=== PATIENT | male | born 1975 | race Hispanic/Latino ===

== ENCOUNTER 2020-02-22 19:39 | Emergency (ER) | payer SELFPAY ==
[2020-02-22] MEDS ORDERED: NA CHLORIDE 0.9% 1,000 ML ONE (20:25)
[2020-02-22] MEDS ORDERED: ONDANSETRON 4 MG/2 ML VIAL ONE ×2 (20:25→23:04)
[2020-02-22 20:27] LABS: Absolute Lymphocytes (CBC) 0.7 K/uL (0.7-4.9); Basophils % 0.3 % (0-1.3); Hematocrit 36.2 % (39.6-49.0); Lymphocytes % 10.8 % (15.3-44.8); MPV 9.7 fL (7.6-11.3); RBC Red Blood Cell Count 3.66 M/uL (4.33-5.43)
[2020-02-22 20:40] LABS: ALT/SGPT 43 U/L (12-78); AST/SGOT 73 U/L (15-37); Albumin 3.2 g/dL (3.4-5.0); Alkaline Phosphatase 112 U/L (45-117); BUN Blood Urea Nitrogen 18 mg/dL (7-18); Bicarbonate 25 mmol/L (21-32); Bilirubin Direct 0.2 mg/dL (0-0.2); Glucose Level 150 mg/dL (74-106); Lipase 255 U/L (73-393); Potassium 3.4 mmol/L (3.5-5.1); Protein, Total 7.5 g/dL (6.4-8.2); Sodium Level 144 mmol/L (136-145)
--- NOTE | 2020-02-22 21:18 | RAD REPORT ---
EXAM DESCRIPTION: CT - Abdomen Pelvis W Contrast - 02/22/2020 8:55 pm CLINICAL HISTORY: GI BLEED COMPARISON: None TECHNIQUE: Biphasic, helical CT imaging of the abdomen and pelvis was performed following 100 ml non -ionic IV contrast. No oral contrast administered. All CT scans are performed using dose optimization technique as appropriate and may include automated exposure control or mA/KV adjustment according to patient size. FINDINGS: No suspicious findings in the lung bases. Liver shows a prominent diffuse fatty infiltration pattern. No focal liver lesion. No portal vein abn ormality identified. No pancreatic mass. Subtle edema changes are present around the head of the panc reas. Spleen is unremarkable. Gonzalez the gallbladder are mildly prominent. Gallstones can be occult. G allbladder size is normal. No biliary tree dilatation. Symmetric renal function is seen with no hydronephrosis or suspicious renal mass. No pyelonephritis o r acute parenchymal process. No bladder abnormalities. No adrenal abnormalities. Heterogeneous material and air are present in the lumen of the stomach. No focal gastric wall mass id entified. Air is seen within the folds of the gastric mucosa. No gastric wall pneumatosis confirmed. A focal gastric mass is not identified. Stomach is distended but not dilated by the retained content. This is possibly hematoma within the lumen of the stomach. No active extravasation of contrast. Diamond elation is needed with any food ingested in the last few hours. No duodenal or small bowel abnormalit y seen. Moderate stool volume seen in the colon with no acute colon process. The appendix is unremark able. No free air, free fluid or inflammatory stranding. No hernia, mass or bulky lymphadenopathy. No suspicious bony findings. IMPRESSION: No gastric wall thickening or gastric mass identifiable. The heterogeneous gastric lumen content could include hematoma. Diffuse fatty infiltration of the liver. Subtle edema seen near the head of the pancreas. This is not definitive for pancreatitis but can be c orrelated with any pancreatic lab abnormalities.
[2020-02-22 21:26] LABS: Blood Morphology Comment NOT SEEN (NOT SEEN); Platelet Estimate DECR; Urine White Blood Cell Casts OK
[2020-02-22] MEDS ORDERED: PANTOPRAZOLE 40 MG INJ ONE ×2 (21:50→22:45)
--- NOTE | 2020-02-22 22:36 | ER ---
Nurse's Notes [facility] Name: Melchor Waite Age: 44 yrs Sex: Male : 1975 Arrival Date: 02/22/2020 Time: 19:46 Bed 23 Private MD: Diagnosis: Gastrointestinal hemorrhage, unspecified Presentation: 02/21 19:52 Chief complaint: Patient states: Vomiting since this morning, with water and blood. ca1 Denies abdominal pain and diarrhea. Coronavirus screen: Client denies travel out of the [place] in the last 14 days. At this time, the client does not indicate any symptoms associated with coronavirus-19. Ebola Screen: Patient negative for fever greater than or equal to 101.5 degrees Fahrenheit, and additional compatible Ebola Virus Disease symptoms Patient denies exposure to infectious person. Patient denies travel to an Ebola-affected area in the 21 days before illness onset. No symptoms or risks identified at this time. Initial Sepsis Screen: Does the patient meet any 2 criteria? No. Patient's initial sepsis screen is negative. Does the patient have a suspected source of infection? No. Patient's initial sepsis screen is negative. Risk Assessment: Do you want to hurt yourself or someone else? Patient reports no desire to harm self or others. Onset of symptoms was February 22, 2020. 19:52 Method Of Arrival: Ambulatory ca1 19:52 Acuity: MAURICIO 3 ca1 Historical: - Allergies: 19:56 No Known Allergies; ca1 - Home Meds: 19:56 None [Active]; ca1 - PMHx: 19:56 None; ca1 - PSHx: 19:56 None; ca1 - Immunization history:: Adult Immunizations not up to date. - Social history:: Smoking status: Patient reports the use of cigarette tobacco products, denies chronic smoking, but will smoke occasionally, Patient uses alcohol, claims drinking about a 6 pack/day. Screenin:19 Abuse screen: Denies threats or abuse. Denies injuries from another. Nutritional ks7 screening: No deficits noted. Tuberculosis screening: No symptoms or risk factors identified. Fall Risk None identified. Assessment: 20:20 Pain: Denies pain. GI: Abdomen is non-distended, Bowel sounds present X 4 quads. Abd is ks7 soft and non tender Reports nausea, vomiting, N/V started this am. 02/22/2020. 20:20 Reassessment: pt states he is a daily drinker, drinks approx 7 beers/day. ks7 21:00 Reassessment: Patient and/or family updated on plan of care and expected duration. Pain ks7 level reassessed. Patient denies pain at this time. pt asleep, wake up to voice. 22:50 Reassessment: Patient and/or family updated on plan of care and expected duration. Pain ks7 level reassessed. pt c/o nausea, vomited small amt of dark red/brown blood. notified SPOT MACHINE OPERATOR, Ondansetron ordered IVP. 23:14 Reassessment: Patient states feeling better. General: Appears Behavior is calm, ks7 cooperative. 02/22 00:05 Reassessment: No changes from previously documented assessment. Patient and/or family ks7 updated on plan of care and expected duration. Pain level reassessed. 00:50 Reassessment: Patient appears in no apparent distress at this time. No changes from sg previously documented assessment. Patient and/or family updated on plan of care and expected duration. Pain level reassessed. Cardiovascular: Patient's skin is warm and dry. Respiratory: Airway is patent Respiratory effort is even, unlabored, Respiratory pattern is regular, symmetrical. Derm: Skin is intact, is healthy with good turgor, Skin temperature is warm. Vital Signs: 02/21 19:52 BP 136 / 77; Pulse 102; Resp 18 S; Temp 98.6(TE); Pulse Ox 97% on R/A; Weight 87.54 kg ca1 (R); Height 6 ft. 2 in. (187.96 cm) (R); 20:13 BP 139 / 82; Pulse 94; Resp 18; Pulse Ox 96% on R/A; Pain 0/10; ks7 20:19 BP 124 / 66; Pulse 92; Resp 18; Temp 99(O); Pulse Ox 96% on R/A; Pain 0/10; ks7 21:00 BP 124 / 74; Pulse 80; Resp 18; Pulse Ox 99% on R/A; Pain 0/10; ks7 22:07 BP 138 / 74; Pulse 88; Resp 18; Temp 98.5(O); Pulse Ox 95% on R/A; Pain 0/10; ks7 22:30 BP 129 / 70; Pulse 89; Resp 18; Pulse Ox 96% on R/A; Pain 0/10; ks7 23:00 BP 131 / 70; Pulse 92; Resp 18; Temp 98.5(O); Pulse Ox 98% on R/A; Pain 0/10; ks7 23:12 Pulse 97; Pulse Ox 100% ; Pain 0/10; ks7 23:28 Pain 0/10; ks7 02/22 00:00 BP 117 / 59; Pulse 91; Resp 18; Temp 98.5(O); Pulse Ox 95% on R/A; Pain 0/10; ks7 02/21 19:52 Body Mass Index 24.78 (87.54 kg, 187.96 cm) ca1 ED Course: 02/21 19:46 Patient arrived in ED. cf2 19:48 Fartun Gordon F[facility]-C [facility]. kb 19:48 Dwayne Clements MD is Attending Physician. kb 19:53 Leilani Block, SHAMA is Primary Nurse. ks7 19:54 Triage completed. ca1 19:56 Arm band placed on right wrist. ca1 20:13 Basic Metabolic Panel Sent. ks7 20:13 CBC with Diff Sent. ks7 20:13 Hepatic Function Sent. ks7 20:13 Lipase Sent. ks7 20:19 Resting quietly. ks7 20:19 Patient has correct armband on for positive identification. Placed in gown. Bed in low ks7 position. Call light in reach. Side rails up X2. 20:19 No provider procedures requiring assistance completed. Inserted saline lock: 20 gauge ks7 in left forearm, using aseptic technique. Blood collected. 20:[address] via stretcher. ks7 22:06 Served as a direct care counselor during rectal exam. Shabana SESAY assisted and interpreted for Fartun jarvis SPOT MACHINE OPERATOR. rectal exam. guaiac positive. 22:13 Initiated transfer with Iesha Rodarte at [facility]. tt3 22:15 Iesha Rodarte called back with the G.I. specialist for the provider. tt3 22:34 Dr. Parker accepted the patient at [id number]. tt3 22:42 The patient is going to the 15th tower at [facility] bed 1563. Report to be called tt3 to . Face sheet faxed to per Iesha Rodarte's request. Iesha Cayden gave admin approval at [id number]. 22:45 Protime (+inr) Sent. ks7 22:45 Ptt, Activated Sent. ks7 23:12 Inserted saline lock: 18 gauge in right forearm, using aseptic technique. ks7 02/22 00:50 Patient transferred, IV remains in place. sg Administered Medications: Discontinued: NS 0.9% 1000 ml IV at 1000 ml once 02/21 20:20 Drug: NS 0.9% 1000 ml Route: IV; Rate: 1000 ml; Site: left forearm; ks7 20:21 Drug: Zofran (Ondansetron) 4 mg Route: IVP; Site: left forearm; ks7 23:28 Follow up: Pain 0/10 Adult ks7 21:43 Drug: ProTONIX 40 mg Route: IVP; Site: left forearm; ks7 02/22 00:54 Follow up: Response: No adverse reaction 02/21 22:47 Drug: ProTONIX 8 mg/hr Route: IV; Rate: 25 ml/hr; Site: left antecubital; 02/22 00:54 Follow up: IV Status: Infusion continued upon transfer 02/21 22:55 Drug: Zofran (Ondansetron) 4 mg Route: IVP; Site: left forearm; ks7 23:12 Follow up: Pulse 97 bpm; Pulse Ox 100% ; Pain 0/10 Adult ks7 Outcome: 22:36 ER care complete, transfer ordered by . kb 23:28 Transferred Note: Report called to Mary SESAY [phone] ks7 23:28 Instructed on the need for admit, the need for transfer. 02/22 00:50 Condition: good 00:55 Patient left the ED. sg Signatures: Fartun Gordon, WARP KNITTING MACHINE OPERATOR-C WARP KNITTING MACHINE OPERATOR-Chucky Yu RN SHAMA sg Columba Gorman RN SHAMA [facility] Shanna Serna cf2 Anastasiya Dangelo RN RN vc Corey Briceño tt3 Leilani Block RN RN ks7 Corrections: (The following items were deleted from the chart) 02/21 22:09 22:07 BP 138 / 74; Pulse 88bpm; Resp 18bpm; Pulse Ox 95% RA; Pain 0/10; ks7 ks7 23:21 20:20 GI: Abdomen is non-distended, Bowel sounds present X 4 quads. Abd is soft and non ks7 tender Reports nausea, vomiting, ks7
--- NOTE | 2020-02-22 22:36 | EDPHYS ---
Physician Documentation [facility] Name: Melchor Waite Age: 44 yrs Sex: Male : 1975 Arrival Date: 02/22/2020 Time: 19:46 Bed 23 Private MD: ED Physician Dwayne Clements HPI: 02/21 20:10 This 44 yrs old Male presents to ER via Ambulatory with complaints of Vomiting.kb 20:10 The patient presents to the emergency department with nausea, vomiting, described as kb blood clots. Onset: The symptoms/episode began/occurred this morning. Possible causes: unknown. The symptoms are aggravated by nothing. The symptoms are alleviated by nothing. Associated signs and symptoms: Pertinent positives: nausea, vomiting, Pertinent negatives: abdominal pain. Severity of symptoms: At their worst the symptoms were mild moderate in the emergency department the symptoms are unchanged. The patient has not experienced similar symptoms in the past. The patient has not recently seen a physician. 22:01 Pt reports vomiting that started this morning with black blood clots. States he has kb also had black stool for 2-3 days. Denies abdominal pain. Denies history of GI bleed. Historical: - Allergies: 19:56 No Known Allergies; ca1 - Home Meds: 19:56 None [Active]; ca1 - PMHx: 19:56 None; ca1 - PSHx: 19:56 None; ca1 - Immunization history:: Adult Immunizations not up to date. - Social history:: Smoking status: Patient reports the use of cigarette tobacco products, denies chronic smoking, but will smoke occasionally, Patient uses alcohol, claims drinking about a 6 pack/day. ROS: 20:08 Constitutional: Negative for fever, chills, and weight loss, Cardiovascular: Negative kb for chest pain, palpitations, and edema, Respiratory: Negative for shortness of breath, cough, wheezing, and pleuritic chest pain, Back: Negative for injury and pain, MS/Extremity: Negative for injury and deformity, Skin: Negative for injury, rash, and discoloration, Neuro: Negative for headache, weakness, numbness, tingling, and seizure. 20:08 Abdomen/GI: Positive for nausea and vomiting, hematemesis, black/tarry stool, Negative for abdominal pain, diarrhea, constipation. Exam: 20:08 Constitutional: This is a well developed, well nourished patient who is awake, alert, kb and in no acute distress. Head/Face: Normocephalic, atraumatic. Chest/axilla: Normal chest wall appearance and motion. Nontender with no deformity. No lesions are appreciated. Cardiovascular: Regular rate and rhythm with a normal S1 and S2. No gallops, murmurs, or rubs. Normal PMI, no JVD. No pulse deficits. Respiratory: Lungs have equal breath sounds bilaterally, clear to auscultation and percussion. No rales, rhonchi or wheezes noted. No increased work of breathing, no retractions or nasal flaring. Abdomen/GI: Soft, non-tender, with normal bowel sounds. No distension or tympany. No guarding or rebound. No evidence of tenderness throughout. Skin: Warm, dry with normal turgor. Normal color with no rashes, no lesions, and no evidence of cellulitis. MS/ Extremity: Pulses equal, no cyanosis. Neurovascular intact. Full, normal range of motion. Neuro: Awake and alert, GCS 15, oriented to person, place, time, and situation. Cranial nerves II-XII grossly intact. Motor strength 5/5 in all extremities. Sensory grossly intact. Cerebellar exam normal. Normal gait. 22:00 Abdomen/GI: Rectal exam: Stool: guaiac positive, black. kb Vital Signs: 19:52 BP 136 / 77; Pulse 102; Resp 18 S; Temp 98.6(TE); Pulse Ox 97% on R/A; Weight 87.54 kg ca1 (R); Height 6 ft. 2 in. (187.96 cm) (R); 20:13 BP 139 / 82; Pulse 94; Resp 18; Pulse Ox 96% on R/A; Pain 0/10; ks7 20:19 BP 124 / 66; Pulse 92; Resp 18; Temp 99(O); Pulse Ox 96% on R/A; Pain 0/10; ks7 21:00 BP 124 / 74; Pulse 80; Resp 18; Pulse Ox 99% on R/A; Pain 0/10; ks7 22:07 BP 138 / 74; Pulse 88; Resp 18; Temp 98.5(O); Pulse Ox 95% on R/A; Pain 0/10; ks7 22:30 BP 129 / 70; Pulse 89; Resp 18; Pulse Ox 96% on R/A; Pain 0/10; ks7 23:00 BP 131 / 70; Pulse 92; Resp 18; Temp 98.5(O); Pulse Ox 98% on R/A; Pain 0/10; ks7 23:12 Pulse 97; Pulse Ox 100% ; Pain 0/10; ks7 23:28 Pain 0/10; ks7 02/22 00:00 BP 117 / 59; Pulse 91; Resp 18; Temp 98.5(O); Pulse Ox 95% on R/A; Pain 0/10; ks7 02/21 19:52 Body Mass Index 24.78 (87.54 kg, 187.96 cm) ca1 MDM: 02/21 19:49 Patient medically screened. kb 20:08 Data reviewed: vital signs, nurses notes. Data interpreted: Pulse oximetry: on room air kb is 97 %. Interpretation: normal. 20:35 ED course: Pt attests to drinking approx 7 beers daily. Pt has never had this problem kb before.. 22:00 Counseling: I had a detailed discussion with the patient and/or guardian regarding: the kb historical points, exam findings, and any diagnostic results supporting the discharge/admit diagnosis, lab results, radiology results, the need to transfer to another facility, [facility] does not immediately have the required specialist. 22:10 ED course: Transfer initiated to [facility] due to lack of GI specialist.. kb 22:34 ED course: Pt accepted for transfer to [facility] by Dr Parker (hospitalist). Pt kb accepted for consult by Dr Moses (GI).. 02/21 20:03 Order name: Basic Metabolic Panel kb 02/21 20:03 Order name: CBC with Diff kb 02/21 20:03 Order name: Hepatic Function kb 02/21 20:03 Order name: Lipase kb 02/21 20:29 Order name: CBC with Automated Diff; Complete Time: 21:30 EDMS 02/21 20:41 Order name: Basic Metabolic Panel; Complete Time: 20:48 EDMS 02/21 20:31 Order name: CT Abd/Pelvis - IV Contrast Only kb 02/21 20:41 Order name: Liver (Hepatic) Function; Complete Time: 20:48 EDMS 02/21 20:41 Order name: Lipase; Complete Time: 20:48 EDMS 02/21 21:27 Order name: CBC Smear Scan; Complete Time: 21:30 EDMS 02/21 22:35 Order name: Protime (+inr) kb 02/21 22:35 Order name: Ptt, Activated kb 02/21 22:59 Order name: Protime (+INR); Complete Time: 23:01 EDMS 02/21 22:59 Order name: PTT, Activated Partial Thromb; Complete Time: 23:01 EDMS 02/21 20:03 Order name: IV Saline Lock; Complete Time: 20:13 kb 02/21 20:03 Order name: Labs collected and sent; Complete Time: 20:13 kb 02/21 21:20 Order name: CT; Complete Time: 21:24 EDMS Administered Medications: Discontinued: NS 0.9% 1000 ml IV at 1000 ml once 20:20 Drug: NS 0.9% 1000 ml Route: IV; Rate: 1000 ml; Site: left forearm; ks7 20:21 Drug: Zofran (Ondansetron) 4 mg Route: IVP; Site: left forearm; ks7 23:28 Follow up: Pain 0/10 Adult ks7 21:43 Drug: ProTONIX 40 mg Route: IVP; Site: left forearm; ks7 02/22 00:54 Follow up: Response: No adverse reaction 02/21 22:47 Drug: ProTONIX 8 mg/hr Route: IV; Rate: 25 ml/hr; Site: left antecubital; vc 02/22 00:54 Follow up: IV Status: Infusion continued upon transfer 02/21 22:55 Drug: Zofran (Ondansetron) 4 mg Route: IVP; Site: left forearm; ks7 23:12 Follow up: Pulse 97 bpm; Pulse Ox 100% ; Pain 0/10 Adult ks7 Disposition: 02/22 05:06 Co-signature as Attending Physician, Dwayne Clements MD. mh7 Disposition: 02/22/20 22:36 Transfer ordered to [facility]. Diagnosis is Gastrointestinal hemorrhage, unspecified. - Reason for transfer: Higher level of care. - Accepting physician is Dr Parker. - Condition is Stable. - Problem is new. - Symptoms are unchanged. Signatures: Dispatcher [employer] EDMS Fartun Gordon FNP-C FNP-Ckb Gay, Chucky, RN RN sg AcColumba velasquez RN RN ca1 Anastasiya Dangelo RN RN Dwayne Blackwell MD MD mh7 Leilani Block RN RN ks7 Corrections: (The following items were deleted from the chart) 02/21 21:52 20:10 The patient presents to the emergency department with nausea, vomiting, kb kb 22:01 20:08 Abdomen/GI: Positive for nausea and vomiting, Negative for abdominal pain, kb diarrhea, kb 02/22 00:55 02/21 22:36 02/22/2020 22:36 Transfer ordered to [facility]. sg Diagnosis is Gastrointestinal hemorrhage, unspecified. Reason for transfer: Higher level of care. Accepting physician is Dr Parker. Condition is Stable. Problem is new. Symptoms are unchanged. kb
[2020-02-22] MEDS ORDERED: NA CHLORIDE 0.9% 250 ML ONE (22:45)
[2020-02-22 22:58] LABS: Protime INR 1.26
[2020-02-23 01:10] VITALS: TEMP 98.5
[2020-02-23 01:17] VITALS: BP 117/59; O2SAT 95
== END 2020-02-23 00:55 | disposition short-term general hospital (02) ==
LOC: ER 19:39
DX: K92.0 Hematemesis (principal)
CPT/HCPCS: 36415; 74177; 80048; 80076; 83690; 85025; 85610; 85730; 96365; 96366; 96375; 99285; C9113; J2405; J7030; J7050; Q9967

== ENCOUNTER 2020-09-09 18:10 | Emergency (ER) | payer SELFPAY ==
--- OUTSIDE RECORDS SUMMARY | 2020-09-09 18:15 | XMS REPORT | Continuity of Care Document ---
:1975 Author Organization [facility] t Address [address] [place] [address] Care Team Providers Name Role Phone Do Gibson Attending Clinician [phone] Rajan PHILLIPS Attending Clinician Unavailable SHAUN PARKER Attending Clinician Unavailable Shaun Parker MD Attending Clinician Tuyet AUGUSTIN Attending Clinician Yoandy Martinez MD Attending Clinician Sandeep Perez MD Attending Clinician Jazzy Salomon MD Attending Clinician TUYET Admitting Clinician Unavailable Problems Condition Condition Condition Status Onset Resolution Last Treating Co mments Source Name Details Category Date Date Treatment Clinician Date Upper GI [facility] Disease [facility] 00 [place] Alcoholism Alcoholism Disease Active [facility] 00 [place] Allergies, Adverse Reactions, Alerts This patient has no known allergies or adverse reactions. Social History Social Habit Start Date Stop Date Quantity Comments Source Sex Assigned At [facility] Tobacco use and 2020-02-25 2020-02-25 Current user [facility] Lu[place] - exposure 00:00:00 00:00:00 [facility] Alcohol intake 2020-02-25 2020-02-25 [facility]00 of alcohol [facility] (finding) Tobacco Comment 2020-02-23 2020-02-[address] [facility] - 00:00:00 00:00:00 04-28 cigrettes Medical C enter Alcohol Comment 2020-02-23 2020-02-23 daily [facility] kes - 00:00:00 00:00:00 Medical Center Smoking Status Start Date Stop Date Source Current some day smoker 2020-02-25 00:00:00 [facility] Medications Ordered Filled Start Stop Current Ordering Indication Dosage Frequency Signature Comments Components Source Medication Medication Date Date Medication? Clinician (SIG) Name Name multivitami No 1{tbl} QD Take [address] n 02-25 tablet by [facility] - (THERAGRAN) 00:00: 23:59 mouth Medi matti tablet 00 :00 daily for Center 30 days. levoFLOXaci No 500mg QD Take [address] n 02-25 tablet [facility] - (LEVAQUIN) 00:00: 23:59 (500 mg Med ical 500 MG 00 :00 total) by Center tablet mouth daily for 2 days START 02/26/20. pantoprazol No 40mg Q.5D Take 1 [facility] e 02-24 tablet (40 [facility] - (PROTONIX) 00:00: 23:59 mg total) M edical 40 MG 00 :00 by mouth 2 Center tablet (two) times daily for 30 days. Vital Signs Vital Name Observation Time Observation Value Comments Source Systolic blood 2020-02-25 12:08:00 150 mm[Hg] [facility] Diastolic blood 2020-02-25 12:08:00 76 mm[Hg] [facility] S t [facility] Heart rate 2020-02-25 12:08:00 63 /min [facility] Body temperature 2020-02-25 12:08:00 37.06 Areli [facility] Respiratory rate 2020-02-25 12:08:00 18 /min [facility] Oxygen saturation in 2020-02-25 12:08:00 100 /min [facility] Arterial blood by Medical Ce nter Pulse oximetry Body height 2020-02-23 02:30:00 170.2 cm [facility] Body weight 2020-02-23 02:30:00 85.004 kg [facility] BMI 2020-02-23 02:30:00 29.35 kg/m2 [facility] Procedures Procedure Date / Time Performing Clinician Source Performed CBC W/PLT COUNT & AUTO 2020-02-25 04:31:00 Saeed, Johnathan [facility] COMPREHENSIVE METABOLIC 2020-02-25 04:31:00 [facility]NESIUM 2020-02-25 04:31:00 Saeed, [facility] [id number], 2020-02-25 04:31:00 Junior Trejo [facility] HEPATITIS B PANEL 2020-02-25 04:31:00 Neil Junior [facility] HEPATITIS A ANTIBODY, IGG 2020-02-25 04:31:00 [facility] G (IGG) 2020-02-25 04:31:00 John Trejoshank [facility] US ABDOMINAL WITH DOPPLER 2020-02-24 23:06:00 [facility] [place] TRANSFUSION SERVICE REPORT 2020-02-24 18:00:44 Provider, Blu [facility] - - SCAN Scanning [facility] CBC W/PLT COUNT & AUTO 2020-02-24 04:18:00 [facility] COMPREHENSIVE METABOLIC 2020-02-24 04:18:00 [facility]UM 2020-02-24 04:18:00 Saeed, Johnathan [facility] ACTIN (SMOOTH MUSCLE) 2020-02-24 04:17:00 [facility] - ANTIBODY, IGG [facility] MITOCHONDRIA M2 ANTIBODY 2020-02-24 04:17:00 [facility]ila [facility] - (IGG) [facility] FERRITIN 2020-02-24 04:17:00 Twila [facility] IRON, TIBC, % SAT. 2020-02-24 04:17:00 Twila [facility] (WITHOUT FERRITIN) Medical Cente r VITAMIN B12 2020-02-24 04:17:00 Twila [facility] FOLATE, SERUM 2020-02-24 04:17:00 Twila [facility] CERULOPLASMIN 2020-02-24 04:17:00 Twila [facility] HEPATITIS PANEL, ACUTE 2020-02-24 04:17:[address] [facility] ALPHA FETOPROTEIN (AFP), 2020-02-24 04:17:00 Chris [facility] TUMOR MARKER [facility] UPPER ENDOSCOPY 2020-02-23 15:30:[address] [facility] REPORT OF PROCEDURE - 2020-02-23 15:17:09 Chris [facility] ENDOSCOPY [facility] US ABDOMEN LIMITED 2020-02-23 08:23:00 Saeed, [facility] ABORH, MANUAL 2020-02-23 07:12:00 Cielo Ny [facility] MAGNESIUM 2020-02-23 05:47:00 Saeed, [facility] TYPE AND SCREEN, AUTOMATED 2020-02-23 05:47:00 Saeed, [facility] SARS-COV2/RT-PCR ([facility] & 2020-02-23 04:41:00 Tuyet [facility] - REF LABS) [facility] CBC W/PLT COUNT & AUTO 2020-02-23 04:29:00 Saeed, [facility] DIFFERENTIAL [facility] COMPREHENSIVE METABOLIC 2020-02-23 04:29:00 Saeed, [facility] PROTHROMBIN TIME/INR 2020-02-23 04:29:00 Saeed, [facility] APTT 2020-02-23 04:29:00 Saeed, [facility] Plan of Care Planned Activity Planned Date Details Comments Source Future Scheduled 2020-03-18 INFLUENZA VACCINE (#1) [facility] Test 00:00:00 [code = INFLUENZA Medical Ce nter VACCINE (#1)] Future Scheduled [address] [facility] - Test 00:00:00 (procedure) [code = [facility] [id number]] Future Scheduled [address] [facility] - Test 00:00:00 0-64 YRS (1 of 1 - Medical C enter PPSV23) [code = PNEUMOCOCCAL VACCINE 0-64 YRS (1 of 1 - PPSV23)] Results Test Description Test Time Test Comments Results Result Comments Source Ceruloplasmin 2020-02-28 14:40:00 Test Item Value Reference Range Interpretation Comme nts Ceruloplasmin (test code = 20190908) 22 mg/dL 18-36 ALESSIA (test code = ALESSIA) Performing Lab *JERONIMO [facility], [address] [place] [phone] Karen Vigil MD, PhD [facility] (Smooth Muscle) Antibody, [id number] 06:52:00 Test Item Value Reference Range Interpretation Comments Anti-Smooth <20 See Note: U Reference Range :<20 Muscle Ab NEGATIVE> O R = 20 (test code = POSITIVE Antibo dies ) recognizing act in are the main compon entof smooth muscle antibodies asso ciated withautoimmune liver disease. Actin antibodies aref ound in approximatel y 75% of patients withautoimmune hepatitis (AIH) type 1, approximatel y65% of patients wit h autoimmune cholangitis,jacqueline roxima tely 30% of pat ients with primary biliarycirrhosi s, and approximately 2 % of healthy people. High values are clos pelon correlated with AIH type 1. ALESSIA (test code Performing Lab = ALESSIA) EZ [facility]IV[facility] [address] [place] [address] Bernard Crawley MD, PhD, TEJINDER [facility] HospitalMitochondria M2 Antibody (IgG)2020-02-28 06:52:00 Test Item Value Reference Range Interpretation Comments Mitochondria M2 Ab <20.0 See Note: U Reference (test code = Range:NEGATIVE: ) < OR = 20.0EQUIVOCAL: 20.1-24.9POSITI V E: > OR = 25.0 ALESSIA (test code = Performing Lab ALESSIA) EZ [employer] [address] [place] [address] Bernard Crawley MD, PhD, TEJINDER [facility] HospitalHesaint joseph easttis panel, [id number] 12:24:00 Test Item Value Reference Range Interpretation Comments Hep A IgM (test code Nonreactive Nonreactive = 60060-0) Hep B C IgM (test Nonreactive Nonreactive Testing code = 69370-5) Performed at [facility]. Hepatitis C Ab (test Nonreactive Nonreactive code = 48504-1) HBsAg Screen (test Nonreactive Nonreactive code = 5195-3) ALESSIA (test code = ALESSIA) Sludge Filtration Attendant ID - OSCAR F Lab Interpretation Normal (test code = 63406-7) [facility], [id number] 12:24:00 Test Item Value Reference Range Interpretation Comments HEPATITIS A IGM Nonreactive Nonreactive ANTIBODY (BEAKER) (test code = 498) HEPATITIS B CORE IGM Nonreactive Nonreactive Testing Performed at ANTIBODY (BEAKER) Apruve. (test code = 645) HEPATITIS C ANTIBODY Nonreactive Nonreactive (BEAKER) (test code = 367) HEPATITIS B SURFACE Nonreactive Nonreactive ANTIGEN (2) (BEAKER) (test code = 2585) [facility] Fil[facility] Attendant ID - OSCAR FHepatitis A antibody, [id number] 06:49:00 Test Item Value Reference Range Interpretation Comments Hep A IgG (test code = Reactive Nonreactive A 25469-9) ALESSIA (test code = ALESSIA) Sludge Filtration Attendant ID - TACHO Lab Interpretation (test Abnormal code = 57315-9) [facility] ANTIBODY, [id number] 06:49:00 Test Item Value Reference Range Interpretation Comments HEPATITIS A IGG ANTIBODY (BEAKER) Reactive Nonreactive A (test code = 2797) Sl[facility] Filtration Attendant ID - TACHOHepatitis B [id number] 05:48:00 Test Item Value Reference Range Interpretation Comments Hep B Core Total Ab Nonreactive Nonreactive (test code = 61491-3) Hep B S Ab (test <8.0 See_Comment [Automated code = 18718-3) message] The system which generated this result transmitted reference range : <8.0 mIU/mL. e reference range was not used to interpret this result as normal/abnormal . HBsAg Screen (test Nonreactive Nonreactive code = 5195-3) ALESSIA (test code = Sludge Filtration Attendant ID - DB ALESSIA) Lab Interpretation Normal (test code = 14291-3) [facility] Hospital[facility]AT[facility]IS B [id number] 05:48:00 Test Item Value Reference Range Interpretation Comments HEPATITIS B CORE TOTAL ANTIBODY Nonreactive Nonreactive (BEAKER) (test code = 497) HEPATITIS B SURFACE ANTIBODY < mIU/mL <8.0 (BEAKER) (test code = 647) HEPATITIS B SURFACE ANTIGEN (2) Nonreactive Nonreactive (BEAKER) (test code = 2585) Sludge Filtration Attendant ID - DBComprehensive metabolic [id number] 05:37:00 Test Item Value Reference Range Interpretation Comments Protein, Total (test 7.0 See_Comment Specime n code = 2885-2) moderately hemolyzed [Automated message] The system which generated this result transmit noelle reference range : 6.0 - 8.3 gm/dL . The reference range was not u sed to interpret th is result as normal/abnormal . Albumin (test code = 3.4 g/dL 3.5-5 [place] [address]-0) moderately hemolyzed Alkaline Phosphatase 78 U/L 40-150 (test code = 6768-6) Total Bilirubin (test 1.7 mg/dL 0.2-1.2 H Specim en code = 1974-2) moderately hemolyzed Sodium (test code = 138 meq/L 009-111 0551-2) Potassium (test code 3.8 meq/L 3.5-5.1 Specime n = 2823-3) moderately hemolyzed Chloride (test code = 104 meq/L 98-107 5-0) CO2 (test code = 26 meq/L 22-29 2027-9) BUN (test code = 10 mg/dL 7- 3094-0) Creatinine (test code 0.74 mg/dL 0.57-1.25 Specim en = 2160-0) moderately hemolyzed Glucose (test code = 106 mg/dL 70-105 H 5-7) Calcium (test code = 8.5 mg/dL 8.4-10.2 16231-2) AST (test code = 70 U/L 5-34 H Specimen 1920-8) moderately hemolyzed ALT (test code = 25 U/L 6-55 Specimen 1742-6) moderately hemolyzed EGFR (test code = 115 mL/min/1.[place] [address]-4) NOT ACCURATE CREATININE CLEARANCE IN PREDICTING GLOMERULAR FILTRATION RATE . ESTIMATED GFR I S NOT APPLICABLE FOR DIALYSIS PATIEN TS. ALESSIA (test code = ALESSIA) Sludge Filtration Attendant ID - EDASI Lab Interpretation Abnormal (test code = 21903-4) [facility] 05:37:00 Test Item Value Reference Range Interpretation Comments Magnesium (test code = 2.0 mg/dL 1.6-2.6 Speci men 18220-6) moderately hemolyzed ALESSIA (test code = ALESSIA) Sludge Filtration Attendant ID - EDASI Lab Interpretation Normal (test code = 94473-8) [facility] 05:37:00 Test Item Value Reference Range Interpretation Comments MAGNESIUM (BEAKER) 2.0 mg/dL 1.6-2.6 Specimen moderately (test code = 627) hemolyzed Sludge Filtration Attendant ID - EDASICOMPREHENSIVE METABOLIC [id number] 05:37:00 Test Item Value Reference Range Interpretation Comments TOTAL PROTEIN 7.0 gm/dL 6.0-8.3 Specimen moder ately (BEAKER) (test code = hemoly zed 770) ALBUMIN (BEAKER) 3.4 g/dL 3.5-5.0 L Specimen mo derately (test code = 1145) hemolyzed ALKALINE PHOSPHATASE 78 U/L 40-150 (BEAKER) (test code = 346) BILIRUBIN TOTAL 1.7 mg/dL 0.2-1.2 H Specimen mod erately (BEAKER) (test code = hemoly zed 377) SODIUM (BEAKER) (test 138 meq/L 136-145 code = 381) POTASSIUM (BEAKER) 3.8 meq/L 3.5-5.1 Specimen moderately (test code = 379) hemolyzed CHLORIDE (BEAKER) 104 meq/L 98-107 (test code = 382) CO2 (BEAKER) (test 26 meq/L 22-29 code = 355) BLOOD UREA NITROGEN 10 mg/dL 7-21 (BEAKER) (test code = 354) CREATININE (BEAKER) 0.74 mg/dL 0.57-1.25 Specimen moderately (test code = 358) hemolyzed GLUCOSE RANDOM 106 mg/dL 70-105 H (BEAKER) (test code = 652) CALCIUM (BEAKER) 8.5 mg/dL 8.4-10.2 (test code = 697) AST (SGOT) (BEAKER) 70 U/L 5-34 H Specimen moderately (test code = 353) hemolyzed ALT (SGPT) (BEAKER) 25 U/L 6-55 Specimen moderately (test code = 347) hemolyzed EGFR (BEAKER) (test 115 ESTIMATE D GFR IS code = 1092) mL/min/1.73 sq NOT ACCURA TE m CREATININE CLEARANCE IN PREDICTING GLOMERULAR FILTRATION RATE . ESTIMATED GFR I S NOT APPLICABLE FOR DIALYSIS PATIEN TS. Sludge Filtration Attendant ID - EDASIImmunoglobulin G (IgG)2020-02-25 05:12:00 Test Item Value Reference Range Interpretation Comments IgG (test code = 2465-3) 1311 mg/dL 540-1822 ALESSIA (test code = ALESSIA) Sludge Filtration Attendant ID - DB Lab Interpretation (test Normal code = 42535-1) [facility] [id number] 05:12:00 Test Item Value Reference Range Interpretation Comments A-1 Antitrypsin (test code = 155.70 mg/dL 90-200 1825-9) ALESSIA (test code = ALESSIA) Sludge Filtration Attendant ID - DB Lab Interpretation (test Normal code = 65100-8) [facility] [id number] 05:12:00 Test Item Value Reference Range Interpretation Comments ALPHA-1 ANTITRYPSIN (BEAKER) 155.70 mg/dL 90.00-200.00 (test code = 502) Sl[facility] Filtration Attendant ID - DBIMMUNOGLOBULIN G (IGG)2020-02-25 05:12:00 Test Item Value Reference Range Interpretation Comments IMMUNOGLOBULIN G (IGG) (BEAKER) 1311 mg/dL 540-1,822 (test code = 427) Sl[facility] Filtration Attendant ID - DBCBC with platelet count + automated [id number] 04:47:00 Test Item Value Reference Range Interpretation Comments WBC (test code = 6690-2) 6.1 See_Comment [A utomated message] The system [employer] generated this result transmitted ref erence range: 3.5 - 10 .5 K/L. The refe rence range was not u sed to interpret this result as normal/abnor mal. RBC (test code = 789-8) 3.55 See_Comment L [Au tomated message] The system [employer] generated this result transmitted ref erence range: 4.63 - 6 .08 M/L. The refe rence range was not u sed to interpret this result as normal/abnor mal. MCHC (test code = 786-4) 33.2 See_Comment L [A utomated message] The system [employer] generated this result transmitted ref erence range: 32.3 - 3 6.5 GM/DL. The refe rence range was not u sed to interpret this result as normal/abnor mal. Hematocrit (test code = 36.4 % 40.1-51 L 4544-3) MCV (test code = 787-2) 102.5 fL 79-92.2 H MCH (test code = 785-6) 34.1 pg 25.7-32.2 H RDW (test code = 788-0) 13.8 % 11.6-14.4 Platelets (test code = 48 See_Comment L [Aut omated message] 777-3) The system [employer] generated this result transmitted ref erence range: 150 - 45 0 K/CU MM. The referen ce range was not u sed to interpret this result as normal/abnor mal. MPV (test code = 11.8 fL 9.4-12.4 13654-3) nRBC (test code = 413) 0 See_Comment [Aut omated message] The system [employer] generated this result transmitted ref erence range: 0 - 0 /1 00 WBC. The refere nce range was not u sed to interpret this result as normal/abnor mal. % Neutros (test code = 61 % 429) % Lymphs (test code = 23 % 430) % Monos (test code = 11 % 431) % Eos (test code = 432) 4 % % Baso (test code = 437) 1 % # Neutros (test code = 3.76 See_Comment [Aut omated message] 670) The system [employer] generated this result transmitted ref erence range: 1.78 - 5 .38 K/L. The refe rence range was not u sed to interpret this result as normal/abnor mal. # Lymphs (test code = 1.38 See_Comment [Auto mated message] 414) The system [employer] generated this result transmitted ref erence range: 1.32 - 3 .57 K/L. The refe rence range was not u sed to interpret this result as normal/abnor mal. # Monos (test code = 0.69 See_Comment [Autom ated message] 415) The system [employer] generated this result transmitted ref erence range: 0.30 - 0 .82 K/L. The refe rence range was not u sed to interpret this result as normal/abnor mal. # Eos (test code = 416) 0.25 See_Comment [Au tomated message] The system [employer] generated this result transmitted ref erence range: 0.04 - 0 .54 K/L. The refe rence range was not u sed to interpret this result as normal/abnor mal. # Baso (test code = 417) 0.04 See_Comment [A utomated message] The system [employer] generated this result transmitted ref erence range: 0.01 - 0 .08 K/L. The refe rence range was not u sed to interpret this result as normal/abnor mal. Immature 0 % 0-1 Granulocytes-Relative (test code = 2801) Lab Interpretation (test Abnormal code = 61695-7) [facility] W/PLT COUNT & AUTO [id number] 04:47:00 Test Item Value Reference Range Interpretation Comments WHITE BLOOD CELL COUNT (BEAKER) 6.1 K/ L 3.5-10.5 (test code = 775) RED BLOOD CELL COUNT (BEAKER) 3.55 M/ L 4.63-6.08 L (test code = 761) HEMOGLOBIN (BEAKER) (test code = 12.1 GM/DL 13.7-17.5 L 410) HEMATOCRIT (BEAKER) (test code = 36.4 % 40.1-51.0 L 411) MEAN CORPUSCULAR VOLUME (BEAKER) 102.5 fL 79.0-92.2 H (test code = 753) MEAN CORPUSCULAR HEMOGLOBIN 34.1 pg 25.7-32.2 H (BEAKER) (test code = 751) MEAN CORPUSCULAR HEMOGLOBIN CONC 33.2 GM/DL 32.3-36.5 (BEAKER) (test code = 752) RED CELL DISTRIBUTION WIDTH 13.8 % 11.6-14.4 (BEAKER) (test code = 412) PLATELET COUNT (BEAKER) (test code 48 K/CU MM 150-450 L = 756) MEAN PLATELET VOLUME (BEAKER) 11.8 fL 9.4-12.4 (test code = 754) NUCLEATED RED BLOOD CELLS (BEAKER) 0 /100 WBC 0-0 (test code = 413) NEUTROPHILS RELATIVE PERCENT 61 % (BEAKER) (test code = 429) LYMPHOCYTES RELATIVE PERCENT 23 % (BEAKER) (test code = 430) MONOCYTES RELATIVE PERCENT 11 % (BEAKER) (test code = 431) EOSINOPHILS RELATIVE PERCENT 4 % (BEAKER) (test code = 432) BASOPHILS RELATIVE PERCENT 1 % (BEAKER) (test code = 437) NEUTROPHILS ABSOLUTE COUNT 3.76 K/ L 1.78-5.38 (BEAKER) (test code = 670) LYMPHOCYTES ABSOLUTE COUNT 1.38 K/ L 1.32-3.57 (BEAKER) (test code = 414) MONOCYTES ABSOLUTE COUNT (BEAKER) 0.69 K/ L 0.30-0.82 (test code = 415) EOSINOPHILS ABSOLUTE COUNT 0.25 K/ L 0.04-0.54 (BEAKER) (test code = 416) BASOPHILS ABSOLUTE COUNT (BEAKER) 0.04 K/ L 0.01-0.08 (test code = 417) IMMATURE GRANULOCYTES-RELATIVE 0 % 0-1 PERCENT (BEAKER) (test code = 2801) U/S, ABDOMINAL, WITH [id number] 01:03:00Reason for exam:->Complete U/s, including eval of portal system for thrombosis and spleenFINAL REPORT History: "Complete ultrasound, including evaluation of portal system for thrombosis and spleen" Abdominal ultrasound dated 02/24/2020 Comparison: 02/23/2020 Comment: Real-time transabdominal ultrasound of the abdomen was performed. Liver: 14.8 cm , normal. Heterogeneous parenchymal echogenicity. No focal lesions. Gallbladder: No gallstones. No gallbladder wall thickening. No perocholecystic fluid.. No sonographic Monterroso's sign. Biliary tree: No intrahepatic ductal dilatation. CBD: 5 mm. Spleen: Mild splenomegaly measuring 13.4 cm. Pancreas: Unremarkable. Right kidney: 10.5 x 5.0 x 5.1 cm. Normal echogenicity.Left kidney: 11.8 x 6.6 x 5.4 cm. Normal echogenicity. No ascites is present in the abdomen. Real-time Santillan scale, color and spectral doppler ultrasound of the abdomen was performed to evaluate visceral blood flow. Main portal vein measures 1.3 cm in diameter. There is hepatopetal flow in the main portal vein with velocity 17 cm/sec. The right and left intrahepatic portal veins are patent with hepatopetal flow. The splenic vein is patent with appropriateflow. Proper hepatic artery, right hepatic artery, and left hepatic artery are patent with resistiveindices 0.7, 0.7, and 0.7 respectively. IVC, Hepatic venous confluence, right HV, middle HV and leftHV are patent with appropriate flow. The visualized abdominal aorta is normal in caliber. Impression: Heterogeneous hepatic parenchymal echogenicity, a nonspecific appearance often associated with underlying parenchymal disease, such as cirrhosis. Correlation is recommended. Mild splenomegaly. Unremarkable abdominal Doppler evaluation. Signed: Konrad Schofield MDReport Verified Date/Time: 02/25/202001:03:55 US abdominal with [id number] 01:03:00Interface, External Ris In - 02/25/2020 1:07 AM CDTFINAL REPORT History: "Complete ultrasound, including evaluation of portal system for thrombosis and spleen" Abdominal ultrasound dated 02/24/2020 Comparison: 02/23/2020 Comment: Real-time transabdominal ultrasound of the abdomenwas performed. Liver: 14.8 cm , normal. Heterogeneous parenchymal echogenicity. No focal lesions. Gallbladder: No gallstones. No gallbladder wall thickening. No perocholecystic fluid.. No sonographic Monterroso's sign. Biliary tree: No intrahepatic ductal dilatation. CBD: 5 mm. Spleen: Mild splenomegaly measuring 13.4 cm. Pancreas: Unremarkable. Right kidney: 10.5 x 5.0 x 5.1 cm. Normal echogenicity.Left kidney: 11.8 x 6.6 x 5.4 cm. Normal echogenicity. No ascites is present in the abdomen. Real-time Santillan scale, color and spectral doppler ultrasound of the abdomen was performed to evaluate visceral blood flow. Main portal vein measures 1.3 cm in diameter. There is hepatopetal flow in the main portal vein with velocity 17 cm/sec. The right and left intrahepatic portal veins are patent with hepatopetal flow. The splenic vein is patent with appropriate flow. Proper hepatic artery, right hepatic artery, and left hepatic artery are patent with resistive indices 0.7, 0.7, and 0.7 respectively. IVC, Hepatic venous confluence, right HV, middle HV and left HV are patent with appropriate flow. The visualized abdominal aorta is normal in caliber. Impression: Heterogeneous hepatic parenchymal echogenicity, a nonspecific appearance often associated with underlying parenchymal disease, such as cirrhosis. Correlation is recommended. Mild splenomegaly. Unremarkable abdominal Doppler evaluation. Signed: Konrad Schofieldepst. [place] [facility] Verified Date/Time: 02/25/2020 01:03:55 [facility]rit[facility] 08:10:00 Test Item Value Reference Range Interpretation Comments Ferritin (test code = 50.67 ng/mL 5-275 2276-4) ALESSIA (test code = ALESSIA) Sludge Filtration Attendant ID - EDASI Lab Interpretation (test Normal code = 75077-5) [facility], [id number] 08:10:00 Test Item Value Reference Range Interpretation Comments Folate (test code = 8.40 ng/mL See_Comment [Automa noelle 2284-8) message] The system which generated this result transmit noelle reference range : >=7.00. The reference range was not used to interpret this result as normal/abnormal . ALESSIA (test code = ALESSIA) Sludge Filtration Attendant ID - EDASI Lab Interpretation Normal (test code = 45739-2) [facility] HospitalFERRITIN2020-08-09 08:10:00 Test Item Value Reference Range Interpretation Comments FERRITIN (BEAKER) (test code = 50.67 ng/mL 5.00-275.00 361) Sludge Filtration Attendant ID - KRISTIANASIFOLATE, [id number] 08:10:00 Test Item Value Reference Range Interpretation Comments FOLATE (BEAKER) (test code = 362) 8.40 ng/mL >=7.00 Sludge Filtration Attendant ID - EDASIAlpha fetoprotein (AFP), tumor [id number] 07:17:00 Test Item Value Reference Range Interpretation Comments Alpha-Fetoprotein (test 4.6 ng/mL <10.0 code = 1834-1) ALESSIA (test code = ALESSIA) Sludge Filtration Attendant ID - OSCAR F Lab Interpretation (test Normal code = 42632-4) [facility]AL[facility] FETOPROTEIN (AFP), TUMOR [id number] 07:17:00 Test Item Value Reference Range Interpretation Comments ALPHA-FETOPROTEIN (BEAKER) (test 4.6 ng/mL <10.0 code = 1094) Sludge Filtration Attendant ID - OSCAR Ruanoon, TIBC, % sat. (without ferritin)2020-02-24 06:55:00 Test Item Value Reference Range Interpretation Comments Iron (test code = 2498-4) 258.0 ug/dL 40-160 H TIBC (test code = 2500-7) 250 ug/dL 250-450 Iron % Saturation (test 103 % 20-55 H code = 2502-3) ALESSIA (test code = ALESSIA) Sludge Filtration Attendant ID - TONI M Lab Interpretation (test Abnormal code = 46135-5) [facility] HospitalIRON, TIBC, % SAT. (WITHOUT FERRITIN)2020-02-24 06:55:00 Test Item Value Reference Range Interpretation Comments IRON (BEAKER) (test code = 547) 258.0 ug/dL 40.0-160.0 H TOTAL IRON BINDING CAPACITY 250 ug/dL 250-450 (BEAKER) (test code = 769) IRON % SATURATION (2) (BEAKER) 103 % 20-55 H (test code = 2590) Sludge Filtration Attendant ID - TONI MVitamin [id number] 05:50:00 Test Item Value Reference Range Interpretation Comments Vitamin B12 (test code = 1772 pg/mL 213-816 H 2132-9) ALESSIA (test code = ALESSIA) Sludge Filtration Attendant ID - ADRIAN Lab Interpretation (test Abnormal code = 16654-1) [facility] HospitalVITAMIN [id number] 05:50:00 Test Item Value Reference Range Interpretation Comments VITAMIN B12 (BEAKER) (test code = 1772 pg/mL 213-816 H 774) Sludge Filtration Attendant ID - EDASICOMPREHENSIVE METABOLIC [id number] 04:57:00 Test Item Value Reference Range Interpretation Comments TOTAL PROTEIN 6.3 gm/dL 6.0-8.3 (BEAKER) (test code = 770) ALBUMIN (BEAKER) 3.2 g/dL 3.5-5.0 L (test code = 1145) ALKALINE PHOSPHATASE 75 U/L 40-150 (BEAKER) (test code = 346) BILIRUBIN TOTAL 2.3 mg/dL 0.2-1.2 H (BEAKER) (test code = 377) SODIUM (BEAKER) (test 135 meq/L 136-145 L code = 381) POTASSIUM (BEAKER) 3.8 meq/L 3.5-5.1 (test code = 379) CHLORIDE (BEAKER) 102 meq/L 98-107 (test code = 382) CO2 (BEAKER) (test 28 meq/L 22-29 code = 355) BLOOD UREA NITROGEN 15 mg/dL 7-21 (BEAKER) (test code = 354) CREATININE (BEAKER) 0.81 mg/dL 0.57-1.25 (test code = 358) GLUCOSE RANDOM 255 mg/dL 70-105 H (BEAKER) (test code = 652) CALCIUM (BEAKER) 7.8 mg/dL 8.4-10.2 L (test code = 697) AST (SGOT) (BEAKER) 42 U/L 5-34 H (test code = 353) ALT (SGPT) (BEAKER) 18 U/L 6-55 (test code = 347) EGFR (BEAKER) (test 104 ESTIMATE D GFR IS code = 1092) mL/min/1.73 sq NOT ACCURA TE m CREATININE CLEARANCE IN PREDICTING GLOMERULAR FILTRATION RATE . ESTIMATED GFR I S NOT APPLICABLE FOR DIALYSIS PATIEN TS. Sludge Filtration Attendant ID - TONI MSpecimen slightly [id number] 04:56:00 Test Item Value Reference Range Interpretation Comments MAGNESIUM (BEAKER) (test code = 1.9 mg/dL 1.6-2.6 627) Sludge Filtration Attendant ID - TONI MCBC W/PLT COUNT & AUTO [id number] 04:48:00 Test Item Value Reference Range Interpretation Comments WHITE BLOOD CELL COUNT (BEAKER) 5.7 K/ L 3.5-10.5 (test code = 775) RED BLOOD CELL COUNT (BEAKER) 3.23 M/ L 4.63-6.08 L (test code = 761) HEMOGLOBIN (BEAKER) (test code = 10.8 GM/DL 13.7-17.5 L 410) HEMATOCRIT (BEAKER) (test code = 33.1 % 40.1-51.0 L 411) MEAN CORPUSCULAR VOLUME (BEAKER) 102.5 fL 79.0-92.2 H (test code = 753) MEAN CORPUSCULAR HEMOGLOBIN 33.4 pg 25.7-32.2 H (BEAKER) (test code = 751) MEAN CORPUSCULAR HEMOGLOBIN CONC 32.6 GM/DL 32.3-36.5 (BEAKER) (test code = 752) RED CELL DISTRIBUTION WIDTH 14.5 % 11.6-14.4 H (BEAKER) (test code = 412) PLATELET COUNT (BEAKER) (test code 39 K/CU MM 150-450 L = 756) MEAN PLATELET VOLUME (BEAKER) 12.0 fL 9.4-12.4 (test code = 754) NUCLEATED RED BLOOD CELLS (BEAKER) 0 /100 WBC 0-0 (test code = 413) NEUTROPHILS RELATIVE PERCENT 70 % (BEAKER) (test code = 429) LYMPHOCYTES RELATIVE PERCENT 17 % (BEAKER) (test code = 430) MONOCYTES RELATIVE PERCENT 10 % (BEAKER) (test code = 431) EOSINOPHILS RELATIVE PERCENT 3 % (BEAKER) (test code = 432) BASOPHILS RELATIVE PERCENT 1 % (BEAKER) (test code = 437) NEUTROPHILS ABSOLUTE COUNT 3.96 K/ L 1.78-5.38 (BEAKER) (test code = 670) LYMPHOCYTES ABSOLUTE COUNT 0.94 K/ L 1.32-3.57 L (BEAKER) (test code = 414) MONOCYTES ABSOLUTE COUNT (BEAKER) 0.55 K/ L 0.30-0.82 (test code = 415) EOSINOPHILS ABSOLUTE COUNT 0.14 K/ L 0.04-0.54 (BEAKER) (test code = 416) BASOPHILS ABSOLUTE COUNT (BEAKER) 0.05 K/ L 0.01-0.08 (test code = 417) IMMATURE GRANULOCYTES-RELATIVE 0 % 0-1 PERCENT (BEAKER) (test code = 2801) SARS-CoV2/RT-PCR (Asymptomatic ONLY)2020-02-23 12:24:00 Test Item Value Reference Range Interpretation Comments SARS-COV2/RT-PCR Negative Not Detected, (test code = Negative, See 70251-6) external report for linked test SARS-COV-2 [facility] PERFORM[facility] (test code = 12668-0) ALESSIA (test code = Negative result for this ALESSIA) test determines that SARS-CoV-2 RNA was not present in the specimen above the Limit of Detection (LOD). However, Negative results do not preclude SARS-CoV-2 infection and should not be used as the sole basis for treatment or patient management decisions. Negative results must be combined with clinical observations, patient history, and epidemiological information. A false negative result may occur if a specimen is improperly collected, transported or handled. A false negative result should be considered if patient's recent exposures or clinical presentation indicate that COVID-19 (SARS-CoV-2) is likely and diagnostic tests for other causes of illness are negative. Re-testing should be considered in cases of suspected false negatives. The limit of detection for this assay is 800 copies/mL. This SARS CoV-2 test is a real-time RT-PCR test intended for the qualitative detection of nucleic acid from SARS-CoV-2 in a nasopharyngeal swab specimen collected from individuals suspected of COVID-19 by their healthcare provider. This test has not been Food and Drug Administration (FDA) cleared or approved. This is a modified version of an approved Emergency Use Authorization (EUA) and is in the process of review by the FDA. Once authorized by the FDA, the issued EUA will be effective until the declaration that circumstances exist justifying the authorization of the emergency use of in vitro diagnostic tests for detection and/or diagnosis of COVID-19 is terminated under Section 564(b)(2) of the Act or the EUA is revoked under Section 564(g) of the Act. Fact Sheet for Healthcare Providers:https://www.[employer]/sites/default/f dorcas/product/documents/F act_Sheet_HC_Providers_L xob_RPGU-RgI-2.pdf Fact Sheet for Healthcare Patients:https://www.OrdrIt.[employer]Eye/sites/default/fi les/product/documents/Fa ct_Sheet_Patients_Lyra_S ARS-CoV-2.pdf Performing Laboratory:[facility] [place] [address] [facility] ([facility] & REF LABS)2020-02-23 12:24:00 Test Item Value Reference Range Interpretation Comments SARS-COV2/RT-PCR (test Negative Not Detected, Negative, code = 0604840) See external report for linked test SARS-COV-2 PERFORMING LAB [facility] (test code = 0952179) Negative result for this test determines that SARS-CoV-2 RNA was not present in the specimen above the Limit of Detection (LOD). However, Negative results do not preclude SARS-CoV-2 infection and should not be used as the sole basis for treatment or patient management decisions. Negative results mustbe combined with clinical observations, patient history, and epidemiological information. A false negative result may occur if a specimen is improperly collected, transported or handled. A false negative result should be considered if patient's recent exposures or clinical presentation indicate that COVID-19 (SARS-CoV-2) is likely and diagnostic tests for other causes of illness are negative. Re-testing should be considered in cases of suspected false negatives.The limit of detection for this assay is 800 copies/mL.This SARS CoV-2 test is a real-time RT-PCR test intended for the qualitative detection of nucleic acid from SARS-CoV-2 in a nasopharyngeal swab specimen collected from individuals susp ected of COVID-19 by their healthcare provider.This test has not been Food and Drug Administration (FDA) cleared or approved. This is a modified version of an approved Emergency Use Authorization (EUA) and is in the process of review by the FDA. Once authorized by the FDA, the issued EUA will be effective until the declaration that circumstances exist justifying the authorization of the emergency use of in vitro diagnostic tests for detection and/or diagnosis of COVID-19 is terminated under Section 564(b)(2) of the Act or the EUA is revoked under Section 564(g) of the Act.Fact Sheet for Healthcare Providers:https://www.[employer]/sites/default/files/product/documents/Fact_Karthik rocheh_ZR_Sqqhdhrfw_Sffc_RNQX-QiV-9.pdfFact Sheet for Healthcare Patients:https://www.[employer]/sites/default/files/product/ documents/Ldlu_Fueuj_Tjmdydju_Chlf_UGZR-SfU-4.pdfPerforming Laboratory:[place] [address], [place] [address]F/S, ABDOMINAL, [id number] 09:16:00Abdomen limited area? Add comment if clarification is needed.->LiverReason for exam:->PossiblecirrhosisFINAL REPORT Ultrasound of the Right Upper Quadrant of the Abdomen Clinical H istory: Possible cirrhosis Discussion: Sonographic evaluation of the right upper quadrant of the abdomen is performed. Liver: 12.6 cm in length at the right midclavicular line. Coarsened echotexture. No lesion is identified by ultrasound. Main portal vein diameter 1.3 cm. Biliary tree: Common duct 5 mm. No intrahepatic biliary dilatation. Gallbladder: No shadowing calculus/calculi. No wall thickening. No pericholecystic fluid. Negative sonographic Monterroso's sign. Pancreas: Partially visualized, unremarkable. Ascites: None seen. Right kidney: 11.4 x 5.6 x 5.1 cm. Normal cortical echo genicity. No mass. No shadowing calculus. No hydronephrosis. IVC/Aorta: Segments partially seen. Unremarkable. Impression: Coarsened liver echotexture suggestive of chronic liver disease/cirrhosis. Signed: Yvrose Arellanoort Verified Date/Time: 02/23/2020 09:16:55 Reading Location: [address] Consult Reading Room US abdomen [id number] 09:16:00Interface, External Ris In - 02/23/2020 9:19 AM CDTFINAL REPORT Ultrasound of the Right Upper Quadrant of the Abdomen Clinical History: Possible cirrhosis Discussion: Sonographic evaluation of the right upper quadrant of the abdomen is performed. Liver: 12.6 cm in length atthe right midclavicular line. Coarsened echotexture. No lesion is identified by ultrasound. Mainportal vein diameter 1.3 cm. Biliary tree: Common duct 5 mm. No intrahepatic biliary dilatation. G allbladder: No shadowing calculus/calculi. No wall thickening. No pericholecystic fluid. Negative sonographic Monterroso's sign. Pancreas: Partially visualized, unremarkable. Ascites: None seen. Right kidney: 11.4 x 5.6 x 5.1 cm. Normal cortical echogenicity. No mass. No shadowing calculus. No h ydronephrosis. IVC/Aorta: Segments partially seen. Unremarkable. Impression: Coarsened liver echotexture suggestive of chronic liver disease/cirrhosis. Signed: Yvrose Arellano Verified Date/Time: 02/23/2020 09:16:55 Reading Location: [facility] C013X Ortho Consult Reading Room [facility] HospitalABORH, [id number] 08:03:00 Test Item Value Reference Range Interpretation Comments ABO Grouping (test code = 2588) B Rh Factor (test code = 2589) POS [facility]2020-08-08 06:48:00 Test Item Value Reference Range Interpretation Comments MAGNESIUM (BEAKER) (test code = 2.0 mg/dL 1.6-2.6 627) Sludge Filtration Attendant ID - TONI MType and screen, [id number] 06:33:00 Test Item Value Reference Range Interpretation Comments ABO/RH AUTOMATED (BEAKER) (test B POSITIVE code = 2260) Ab Scrn (test code = 890-4) NEGATIVE [facility] HospitalCOMPREHENSIVE METABOLIC [id number] 06:00:00 Test Item Value Reference Range Interpretation Comments TOTAL PROTEIN 7.0 gm/dL 6.0-8.3 (BEAKER) (test code = 770) ALBUMIN (BEAKER) 3.6 g/dL 3.5-5.0 (test code = 1145) ALKALINE PHOSPHATASE 89 U/L 40-150 (BEAKER) (test code = 346) BILIRUBIN TOTAL 1.2 mg/dL 0.2-1.2 (BEAKER) (test code = 377) SODIUM (BEAKER) (test 145 meq/L 136-145 code = 381) POTASSIUM (BEAKER) 3.5 meq/L 3.5-5.1 (test code = 379) CHLORIDE (BEAKER) 112 meq/L 98-107 H (test code = 382) CO2 (BEAKER) (test 21 meq/L 22-29 L code = 355) BLOOD UREA NITROGEN 20 mg/dL 7-21 (BEAKER) (test code = 354) CREATININE (BEAKER) 0.70 mg/dL 0.57-1.25 (test code = 358) GLUCOSE RANDOM 114 mg/dL 70-105 H (BEAKER) (test code = 652) CALCIUM (BEAKER) 8.1 mg/dL 8.4-10.2 L (test code = 697) AST (SGOT) (BEAKER) 56 U/L 5-34 H (test code = 353) ALT (SGPT) (BEAKER) 26 U/L 6-55 (test code = 347) EGFR (BEAKER) (test 123 ESTIMATE D GFR IS code = 1092) mL/min/1.73 sq NOT ACCURA TE m CREATININE CLEARANCE IN PREDICTING GLOMERULAR FILTRATION RATE . ESTIMATED GFR I S NOT APPLICABLE FOR DIALYSIS PATIEN TS. Sludge Filtration Attendant ID - TONI [id number] 05:38:00 Test Item Value Reference Range Interpretation Comments PTT (test code = 34587-1) 30.9 See_Comment [ Automated message] The system [employer] generated this result transmitted ref erence range: 22.5 - 3 6.0 seconds. The re ference range was not u sed to interpret this result as normal/abnor mal. Lab Interpretation (test Normal code = 15030-4) [facility] HospitalAPTT2020-08-08 05:38:00 Test Item Value Reference Range Interpretation Comments PARTIAL THROMBOPLASTIN TIME 30.9 seconds 22.5-36.0 (BEAKER) (test code = 760) Prothrombin time/[id number] 05:37:00 Test Item Value Reference Interpretation Comments Range Protime (test code = 16.0 See_Comment H [Autom ated 5902-2) message] The system which generated this result transmitted reference range : 11.9 - 14.2 seconds. The reference range was not used to interpret this result as normal/abnormal . INR (test code = 1.3 See_Comment [Automated 0341-6) message] The system which generated this result transmitted reference range : <=5.9. The reference range was not used to interpret this result as normal/abnormal . ALESSIA (test code = Effective 12/13/2018: ALESSIA) PT Reference Range ChangeNew: 11.9-14.2 Previous: 11.7-14.7 RECOMMENDED COUMADIN/WARFARIN INR THERAPY RANGESSTANDARD DOSE: 2.0-3.0 Includes: PROPHYLAXIS for venous thrombosis, systemic embolization; TREATMENT for venous thrombosis and/or pulmonary embolus.HIGH RISK: Target INR is 2.5-3.5 for patients wiht mechanical heart valves. Lab Interpretation Abnormal (test code = 75684-0) [facility] HospitalPROTHROMBIN TIME/[id number] 05:37:00 Test Item Value Reference Range Interpretation Comments PROTIME (BEAKER) (test code = 16.0 seconds 11.9-14.2 H 759) INR (BEAKER) (test code = 370) 1.3 <=5.9 Effective 12/13/2018: PT Reference Range ChangeNew: 11.9-14.2 Previous: 11.7- 14.7RECOMMENDED COUMADIN/WARFARIN INR THERAPY RANGESSTANDARD DOSE: 2.0-3.0 Includes: PROPHYLAXIS for venous thrombosis, systemic embolization; TREATMENT for venous thrombosis and/or pulmonary embolus.HIGH RISK: Target INR is2.5-3.5 for patients wiht mechanical heart valves.CBC W/PLT COUNT & AUTO [id number] 05:26:00 Test Item Value Reference Range Interpretation Comments WHITE BLOOD CELL COUNT (BEAKER) 7.4 K/ L 3.5-10.5 (test code = 775) RED BLOOD CELL COUNT (BEAKER) 3.43 M/ L 4.63-6.08 L (test code = 761) HEMOGLOBIN (BEAKER) (test code = 11.4 GM/DL 13.7-17.5 L 410) HEMATOCRIT (BEAKER) (test code = 35.2 % 40.1-51.0 L 411) MEAN CORPUSCULAR VOLUME (BEAKER) 102.6 fL 79.0-92.2 H (test code = 753) MEAN CORPUSCULAR HEMOGLOBIN 33.2 pg 25.7-32.2 H (BEAKER) (test code = 751) MEAN CORPUSCULAR HEMOGLOBIN CONC 32.4 GM/DL 32.3-36.5 (BEAKER) (test code = 752) RED CELL DISTRIBUTION WIDTH 14.8 % 11.6-14.4 H (BEAKER) (test code = 412) PLATELET COUNT (BEAKER) (test code 56 K/CU MM 150-450 L = 756) MEAN PLATELET VOLUME (BEAKER) 11.9 fL 9.4-12.4 (test code = 754) NUCLEATED RED BLOOD CELLS (BEAKER) 0 /100 WBC 0-0 (test code = 413) NEUTROPHILS RELATIVE PERCENT 79 % (BEAKER) (test code = 429) LYMPHOCYTES RELATIVE PERCENT 10 % (BEAKER) (test code = 430) MONOCYTES RELATIVE PERCENT 10 % (BEAKER) (test code = 431) EOSINOPHILS RELATIVE PERCENT 0 % (BEAKER) (test code = 432) BASOPHILS RELATIVE PERCENT 0 % (BEAKER) (test code = 437) NEUTROPHILS ABSOLUTE COUNT 5.83 K/ L 1.78-5.38 H (BEAKER) (test code = 670) LYMPHOCYTES ABSOLUTE COUNT 0.77 K/ L 1.32-3.57 L (BEAKER) (test code = 414) MONOCYTES ABSOLUTE COUNT (BEAKER) 0.74 K/ L 0.30-0.82 (test code = 415) EOSINOPHILS ABSOLUTE COUNT 0.00 K/ L 0.04-0.54 L (BEAKER) (test code = 416) BASOPHILS ABSOLUTE COUNT (BEAKER) 0.03 K/ L 0.01-0.08 (test code = 417) IMMATURE GRANULOCYTES-RELATIVE 0 % 0-1 PERCENT (BEAKER) (test code = 0691)
[2020-09-09 20:04] LABS: Absolute Lymphocytes (CBC) 1.9 K/uL (0.7-4.9); Basophils % 0.3 % (0-1.3); Hematocrit 28.7 % (39.6-49.0); Lymphocytes % 31.3 % (15.3-44.8); MPV 9.5 fL (7.6-11.3); RBC Red Blood Cell Count 3.38 M/uL (4.33-5.43)
[2020-09-09 20:33] LABS: Platelet Estimate DECR; White Blood Cell Scan OK (OK)
[2020-09-09 20:34] LABS: Blood Morphology Comment NOT SEEN (NOT SEEN)
[2020-09-09 20:46] LABS: ALT/SGPT 28 U/L (12-78); AST/SGOT 32 U/L (15-37); Albumin 3.5 g/dL (3.4-5.0); Alkaline Phosphatase 135 U/L (45-117); BUN Blood Urea Nitrogen 15 mg/dL (7-18); Bicarbonate 26 mmol/L (21-32); Bilirubin Direct 0.2 mg/dL (0-0.2); Bilirubin Total 0.7 mg/dL (0.2-1.0); Glucose Level 92 mg/dL (74-106); Lipase 188 U/L (73-393); Potassium 3.8 mmol/L (3.5-5.1); Protein, Total 7.5 g/dL (6.4-8.2); Sodium Level 143 mmol/L (136-145)
--- NOTE | 2020-09-09 21:01 | ER ---
Nurse's Notes [facility] Name: Melchor Waite Age: 45 yrs Sex: Male : 1975 Arrival Date: 09/09/2020 Time: 18:12 Bed 25 Private MD: Diagnosis: Gastrointestinal hemorrhage, unspecified;Anemia, unspecified Presentation: 09/09 18:25 Chief complaint: Patient states: Black stools for 2 days. Pale. Seeing a specialist. ll1 Coronavirus screen: Client denies travel out of the [place] in the last 14 days. At this time, the client does not indicate any symptoms associated with coronavirus-19. Ebola Screen: Patient denies travel to an Ebola-affected area in the 21 days before illness onset. Initial Sepsis Screen: Does the patient meet any 2 criteria? No. Patient's initial sepsis screen is negative. Does the patient have a suspected source of infection? Yes: Acute abdominal pain. Initial Sepsis Screen: Does the patient meet any 2 criteria?. Risk Assessment: Do you want to hurt yourself or someone else? Patient reports no desire to harm self or others. Onset of symptoms was September 08, 2020. 18:25 Method Of Arrival: Ambulatory ll1 18:25 Acuity: MAURICIO 3 ll1 Historical: - Allergies: 18:27 No Known Allergies; ll1 - PMHx: 20:47 Cirrhosis; ll2 - PSHx: 18:27 None; ll1 - Immunization history:: Flu vaccine status is unknown. - Social history:: Smoking status: Patient denies any tobacco usage or history of. Screenin:04 Abuse screen: Denies threats or abuse. Nutritional screening: No deficits noted. tw2 Tuberculosis screening: No symptoms or risk factors identified. Fall Risk None identified. Assessment: 19:16 General: Appears in no apparent distress. Behavior is calm, cooperative, appropriate ll2 for age. Pain: Complains of pain in abdomen. Neuro: Level of Consciousness is awake, alert, obeys commands, Oriented to person, place, time, situation. Cardiovascular: Patient's skin is warm and dry. Respiratory: Airway is patent Respiratory effort is even, unlabored, Respiratory pattern is regular, symmetrical. GI: Reports bloody stool. : No signs and/or symptoms were reported regarding the genitourinary system. EENT: No signs and/or symptoms were reported regarding the EENT system. Derm: Skin is intact, is healthy with good turgor, Skin is dry, Skin is pink, warm \T\ dry. Musculoskeletal: Circulation, motion, and sensation intact. Range of motion: intact in all extremities. 20:20 Reassessment: Patient and/or family updated on plan of care and expected duration. Pain ll2 level reassessed. Patient is alert, oriented x 3, equal unlabored respirations, skin warm/dry/pink. Vital Signs: 18:25 BP 152 / 91; Pulse 90; Resp 17; Temp 99.1; Pulse Ox 100% ; ll1 19:15 BP 150 / 91; Pulse 92; Resp 18; Pulse Ox 99% on R/A; ll2 20:15 BP 144 / 83; Pulse 69; Resp 20; Pulse Ox 100% on R/A; ll2 ED Course: 18:12 Patient arrived in ED. as 18:27 Triage completed. ll1 18:27 Arm band placed on. ll1 19:03 Bed in low position. Call light in reach. tw2 19:19 Irene Mae, RN is Primary Nurse. ll2 19:19 Fartun Gordon FNP-C is PHCP. kb 19:19 Azael Jamison MD is Attending Physician. kb 19:55 Initial lab(s) drawn, by me, sent to lab. Inserted saline lock: 20 gauge in right ll2 antecubital area, using aseptic technique. Blood collected. Administered Medications: No medications were administered Outcome: 20:58 Discharge ordered by . kb 21:50 Patient left the ED. mw2 Signatures: Fartun Gordon FNP-C FNP-Marisa Monte Tara RN RN tw2 Scott Lara mw2 Irene Mae, RN SHAMA ll2 Shilo Mayberry RN RN ll1 Corrections: (The following items were deleted from the chart) 20:47 18:27 PMHx: None; ll1 ll2
--- NOTE | 2020-09-09 21:01 | EDPHYS ---
Physician Documentation [facility] Name: Melchor Waite Age: 45 yrs Sex: Male : 1975 Arrival Date: 09/09/2020 Time: 18:12 Bed 25 Private MD: ED Physician Azael Jamison HPI: 09/09 21:19 This 45 yrs old Male presents to ER via Ambulatory with complaints of kb Black/Tarry Stools. 21:19 The patient presents to the emergency department with rectal bleeding. Onset: The kb symptoms/episode began/occurred yesterday. Abdominal pain: none is appreciated. Modifying factors: The symptoms are alleviated by nothing, the symptoms are aggravated by movement. Associated signs and symptoms: The patient has no apparent associated signs or symptoms. Severity of symptoms: At their worst the symptoms were mild in the emergency department the symptoms have resolved. The patient has not experienced similar symptoms in the past. The patient has not recently seen a physician. Pt reports black stool yesterday morning and this morning. Reports he had a BM this afternoon and it was normal. Just wanted to get checked out. Historical: - Allergies: 18:27 No Known Allergies; ll1 - PMHx: 20:47 Cirrhosis; ll2 - PSHx: 18:27 None; ll1 - Immunization history:: Flu vaccine status is unknown. - Social history:: Smoking status: Patient denies any tobacco usage or history of. ROS: 21:18 Constitutional: Negative for fever, chills, and weight loss, Cardiovascular: Negative kb for chest pain, palpitations, and edema, Respiratory: Negative for shortness of breath, cough, wheezing, and pleuritic chest pain, : Negative for injury, bleeding, discharge, and swelling, MS/Extremity: Negative for injury and deformity, Skin: Negative for injury, rash, and discoloration, Neuro: Negative for headache, weakness, numbness, tingling, and seizure. 21:18 Abdomen/GI: Positive for black/tarry stool, Negative for abdominal pain, nausea, vomiting, and diarrhea. Exam: 21:19 Constitutional: This is a well developed, well nourished patient who is awake, alert, kb and in no acute distress. Head/Face: Normocephalic, atraumatic. Chest/axilla: Normal chest wall appearance and motion. Nontender with no deformity. No lesions are appreciated. Cardiovascular: Regular rate and rhythm with a normal S1 and S2. No gallops, murmurs, or rubs. Normal PMI, no JVD. No pulse deficits. Respiratory: Lungs have equal breath sounds bilaterally, clear to auscultation and percussion. No rales, rhonchi or wheezes noted. No increased work of breathing, no retractions or nasal flaring. Abdomen/GI: Soft, non-tender, with normal bowel sounds. No distension or tympany. No guarding or rebound. No evidence of tenderness throughout. Skin: Warm, dry with normal turgor. Normal color with no rashes, no lesions, and no evidence of cellulitis. MS/ Extremity: Pulses equal, no cyanosis. Neurovascular intact. Full, normal range of motion. 21:19 Neuro: Orientation: is normal, to person, place, time \T\ situation. Mentation: is normal, able to follow commands, Motor: is normal, moves all fours, Sensation: is normal, Gait: is steady. Vital Signs: 18:25 BP 152 / 91; Pulse 90; Resp 17; Temp 99.1; Pulse Ox 100% ; ll1 19:15 BP 150 / 91; Pulse 92; Resp 18; Pulse Ox 99% on R/A; ll2 20:15 BP 144 / 83; Pulse 69; Resp 20; Pulse Ox 100% on R/A; ll2 MDM: 19:19 Patient medically screened. 21:17 Data reviewed: vital signs, nurses notes. Data interpreted: Pulse oximetry: on room air kb is 100 %. Interpretation: normal. Counseling: I had a detailed discussion with the patient and/or guardian regarding: the historical points, exam findings, and any diagnostic results supporting the discharge/admit diagnosis, lab results, the need for outpatient follow up, a electric crane operator, to return to the emergency department if symptoms worsen or persist or if there are any questions or concerns that arise at home. ED course: Pt prefers to go home and call GI specialist tomorrow for outpatient follow up. Will return for worsening symptoms. 21:20 ED course: Medical records that pt brought from 02/25/20 reviewed. PLTs at that time 45. kb Pt was diagnosed with liver disease at that time and saw a GI in [place]. Pt was supposed to follow up in 6-9 months. Will call tomorrow to make appt. . 09/09 19:20 Order name: Basic Metabolic Panel; Complete Time: 20:58 kb 09/09 19:20 Order name: CBC with Diff; Complete Time: 20:44 kb 09/09 19:20 Order name: Hepatic Function; Complete Time: 20:58 kb 09/09 19:20 Order name: Lipase; Complete Time: 20:58 kb 09/09 19:20 Order name: IV Saline Lock; Complete Time: 21:08 kb 09/09 20:33 Order name: CBC Smear Scan; Complete Time: 20:44 EDMS 09/09 19:20 Order name: Labs collected and sent; Complete Time: 21:08 kb Administered Medications: No medications were administered Disposition: 09/10 07:30 Co-signature as Attending Physician, Azael Jamison MD I agree with the assessment and tw4 plan of care. Disposition: 09/09/20 20:58 Discharged to Home. Impression: Gastrointestinal hemorrhage, unspecified, Anemia, unspecified. - Condition is Stable. - Discharge Instructions: Gastrointestinal Bleeding, [id number], Rectal Bleeding, [id number]. - Medication Reconciliation Form, Thank You Letter, Antibiotic Education, Prescription Opioid Use, Work release form form. - Follow up: Emergency Department; When: As needed; Reason: Worsening of condition. Follow up: Private Physician; When: 2 - 3 days; Reason: Recheck today's complaints, Continuance of care, Re-evaluation by your physician. Signatures: Dispatcher [employer] EDMA Fartun Gordon, GALLERY MANAGER-C GALLERY MANAGER-Ckb Azael Jamison MD MD tw4 Scott Lara mw2 Irene Mae, RN RN ll2 Shilo Mayberry RN RN ll1 Corrections: (The following items were deleted from the chart) 09/09 20:47 18:27 PMHx: None; ll1 ll2 21:50 20:58 09/09/2020 20:58 Discharged to Home. Impression: Gastrointestinal hemorrhage, mw2 unspecified; Anemia, unspecified. Condition is Stable. Forms are Medication Reconciliation Form, Thank You Letter, Antibiotic Education, Prescription Opioid Use. Follow up: Emergency Department; When: As needed; Reason: Worsening of condition. Follow up: Private Physician; When: 2 - 3 days; Reason: Recheck today's complaints, Continuance of care, Re-evaluation by your physician. kb
[2020-09-09 22:53] VITALS: TEMP 99.1
[2020-09-09 22:56] VITALS: BP 144/83; O2SAT 100
== END 2020-09-09 21:50 | disposition home or self-care (01) ==
LOC: ER 18:10
DX: D64.9 Anemia, unspecified (principal); K74.60 Unspecified cirrhosis of liver
CPT/HCPCS: 36415; 80048; 80076; 83690; 85025; 99283